=== PATIENT | male | born 1990 | race Caucasian/White ===

== ENCOUNTER 2017-03-13 08:38 | Inpatient (IN) | payer SELFPAY ==
[~2017-03-13] VITALS: Ht 177.8 cm; Wt 60.1 kg
[2017-03-13] MEDS ORDERED: SODIUM CHLORIDE 0.9% 1,000 ML IVB ONE (08:52)
[2017-03-13] MEDS ORDERED: ANGIOMAX 250 MG VIAL IV ONE ×2 (08:56→10:12)
[2017-03-13] MEDS ORDERED: MIDAZOLAM HCL 1MG/1ML-2 ML VIAL ONE ×2 (08:57→10:12)
[2017-03-13] MEDS ORDERED: SODIUM CHL 0.9% 0 ML ONE ×2 (08:57→10:12)
[2017-03-13] MEDS ORDERED: fentaNYL CITRATE 100 MCG/2 ML VL ONE ×2 (08:57→10:12)
[2017-03-13] MEDS ORDERED: MORPHINE SULFATE 10 MG/ML INJ 1ML SDV IV ONE (09:00)
[2017-03-13] MEDS ORDERED: ASPirin 81 mg TAB PO ONE (09:00)
[2017-03-13 09:05] LABS: Basophils # (auto) 0 uL; Basophils % (auto) 0.2 % (0.0-2.0); Eosinophils # (auto) 0.2 uL; Eosinophils % (auto) 1.6 % (0.0-7.0); Hematocrit 43.8 % (41.0-53.0); Hemoglobin 14.7 g/dL (13.5-17.5); Lymphocytes # (auto) 2.3 uL; Lymphocytes % (auto) 18.4 % (10.0-50.0); Mean Corpuscular Hemoglobin 29.1 pg (28.0-32.0); Mean Corpuscular Hgb Conc. 33.6 g/dL (32.0-36.0); Mean Corpuscular Volume 86.6 fL (80.0-100.0); Mean Platelet Volume 6.9 fL (6.9-10.8); Monocytes # (auto) 1.4 uL; Monocytes % (auto) 11.5 % (0.0-12.0); Neutrophils # (auto) 8.5 uL; Neutrophils % (auto) 68.3 % (37.0-80.0); Nucleated Red Blood Cells % 0.1 %; Platelet Count (auto) 402 10^3/uL (140-450); Red Cell Distribution Width 14.4 % (11.8-14.3); White Blood Cell 12.4 10^3/uL (4.4-10.8)
[2017-03-13 09:17] LABS: INR 1.03 (0.9-1.15); Partial Thromboplastin Time 31.8 sec (22.64-33.71); Prothrombin Time 11.2 sec (9.37-12.3)
[2017-03-13 09:35] LABS: Albumin 3.3 g/dL (3.4-5.0); BUN/Creatinine Ratio 10.6; Bilirubin, Total 0.4 mg/dL (0.2-1.0); Calcium 8.5 mg/dL (8.5-10.1); Potassium 3.7 mmol/L (3.5-5.1); Total Protein 7.7 g/dL (6.4-8.2)
[2017-03-13] MEDS ORDERED: LIDOCAINE 2%HCL (LOCAL ANESTH.) INJ 20ML MDV ONE (10:06)
[2017-03-13] MEDS ORDERED: IOHEXOL 350 MG/ML 100ML IJ ONE ×2 (10:06→10:52)
[2017-03-13] MEDS ORDERED: VERAPAMIL 2.5MG/ML INJ 2ML VIAL IV ONE (10:34)
[2017-03-13] MEDS ORDERED: HEPARIN 1,000 UNITS/ml 1ML VIAL ONE ×2 (10:58→10:59)
[2017-03-13 14:00] VITALS: BP 131/71
[2017-03-13] MEDS: IBUPROFEN 600 MG TAB PO SCH ×2 (14:00→21:39)
[2017-03-13 17:29] VITALS: BP 110/87
[2017-03-13 22:00] VITALS: BP 104/66
[2017-03-14 05:00] VITALS: BP 110/81
[2017-03-14] MEDS: IBUPROFEN 600 MG TAB PO SCH ×2 (05:57→12:59)
[2017-03-14 09:00] VITALS: BP 112/79
[2017-03-14] MEDS ORDERED: PANTOPRAZOLE 40 MG TAB PO ONE (10:30)
[2017-03-14 13:24] VITALS: BP 118/82
[2017-03-14 17:00] VITALS: BP 122/79
[2017-03-15] MEDS ORDERED: PANTOPRAZOLE 40 MG TAB PO SCH (10:00)
== END 2017-03-14 17:00 | disposition home or self-care (01) | DRG 281 ==
LOC: ER 08:38 → CATH 08:39 → CENTRAL 08:40 → TELE-CENTR 13:57
PROVIDERS: ADMIT Internal Medicine; ATTEND Internal Medicine
PROC: B2111ZZ Fluoroscopy of Multiple Coronary Arteries using Low Osmolar Contrast (ICD-10-PCS; principal; 2017-03-13)
PROC: 4A023N7 Measurement of Cardiac Sampling and Pressure, Left Heart, Percutaneous Approach (ICD-10-PCS; 2017-03-13)
DX: I21.4 Non-ST elevation (NSTEMI) myocardial infarction (principal); I31.9 Disease of pericardium, unspecified; F17.210 Nicotine dependence, cigarettes, uncomplicated; Z90.49 Acquired absence of other specified parts of digestive tract
CPT/HCPCS: 36415; 71020; 80053; 83735; 84484; 85025; 85379; 85610; 85730; 86850; 86900; 86901; 93005; 93306; 99152; 99153; J2250

== ENCOUNTER 2019-10-13 09:21 | Emergency (ER) | payer MEDICAID, OTHER ==
[~2019-10-13] VITALS: Ht 177.8 cm; Wt 64.9 kg
[2019-10-13 09:40] VITALS: BP 117/78
[2019-10-13 10:05] LABS: Urine Bacteria NONE SEEN /hpf (None Seen); Urine Blood Negative /uL (Negative); Urine Mucus FEW (None Seen); Urine Specific Gravity 1.029 (1.001-1.035); Urine WBC 2 /hpf (0 - 3)
[2019-10-13] MEDS ORDERED: KETOROLAC TROMETH 60MG/2ML VIAL IM ONE (11:45)
== END 2019-10-13 12:56 | disposition home or self-care (01) ==
LOC: ER 09:21
DX: M79.10 Myalgia, unspecified site (principal); M54.5 Low back pain; R51 Headache; I25.2 Old myocardial infarction; Z90.49 Acquired absence of other specified parts of digestive tract
CPT/HCPCS: 74176; 81001; 96372; 99284; J1885

== ENCOUNTER 2021-01-04 19:59 | Inpatient (IN) | payer OTHER ==
[~2021-01-04] VITALS: Ht 175.3 cm; Wt 59.1 kg
[2021-01-04] MEDS ORDERED: MORPHINE SULFATE 4 MG/ML SYR/VIAL IV ONE (20:15)
[2021-01-04] MEDS ORDERED: ONDANSETRON HCL 4 MG/2 ML VIAL IV ONE (20:15)
[2021-01-04 21:10] LABS: Basophils # (auto) 0.1 10 ^3/uL (0-0.2); Basophils % (auto) 0.5 % (0.0-2.0); Eosinophils # (auto) 0.1 10 ^3/uL (0-0.8); Eosinophils % (auto) 0.6 % (0.0-7.0); Hematocrit 40.5 % (41.0-53.0); Hemoglobin 14.1 g/dL (13.5-17.5); Lymphocytes % (auto) 15.5 % (10.0-50.0); Mean Corpuscular Hemoglobin 30.3 pg (28.0-32.0); Mean Corpuscular Hgb Conc. 34.7 g/dL (32.0-36.0); Mean Corpuscular Volume 87.3 fL (80.0-100.0); Monocytes # (auto) 0.9 10 ^3/uL (0-1.3); Monocytes % (auto) 6.8 % (0.0-12.0); Neutrophils # (auto) 10.1 10 ^3/uL (1.6-8.6); Neutrophils % (auto) 76.6 % (37.0-80.0); Red Blood Cells 4.64 10^6/uL (4.5-5.90); Red Cell Distribution Width 13.7 % (11.8-14.3); White Blood Cell 13.1 10^3/uL (4.4-10.8)
[2021-01-04 21:12] LABS: Calcium 8.5 mg/dL (8.5-10.1); Potassium 3.4 mmol/L (3.5-5.1)
[2021-01-04 21:14] LABS: BUN/Creatinine Ratio 16.9
[2021-01-04 21:16] LABS: Bilirubin, Total 0.3 mg/dL (0.2-1.0); Total Protein 7.4 g/dL (6.4-8.2)
[2021-01-04 21:27] LABS: INR 1.03 (0.9-1.15); Partial Thromboplastin Time 25.4 sec (23.6-33.0)
[2021-01-04] MEDS ORDERED: ACETAMINOPHEN 325 MG TAB PO PRN (23:00)
[2021-01-04] MEDS ORDERED: ONDANSETRON HCL 4 MG/2 ML VIAL IV PRN (23:00)
[2021-01-04] MEDS ORDERED: NITROGLYCERIN 0.4 MG SL TAB SL PRN (23:00)
[2021-01-04] MEDS ORDERED: DOCUSATE SOD 100 MG CAP PO PRN (23:00)
[2021-01-04] MEDS ORDERED: MORPHINE SULFATE INJECTION 2 MG/ML SYRG IV PRN (23:00)
[2021-01-05] MEDS ORDERED: LIDOCAINE 2% (LOCAL ANESTH.) PF 5ml SDV ONE (01:14)
[2021-01-05] MEDS ORDERED: LIDOCAINE W/ EPINEPHRINE 2% INJ 20ML VIAL IJ ONE (01:15)
[2021-01-05] MEDS: MORPHINE SULFATE INJECTION 2 MG/ML SYRG IV PRN ×4 (04:10→19:39)
[2021-01-05 04:24] LABS: Basophils # (auto) 0.1 10 ^3/uL (0-0.2); Basophils % (auto) 0.5 % (0.0-2.0); Eosinophils # (auto) 0 10 ^3/uL (0-0.8); Eosinophils % (auto) 0.1 % (0.0-7.0); Hematocrit 38.3 % (41.0-53.0); Hemoglobin 13.4 g/dL (13.5-17.5); Lymphocytes # (auto) 1.3 10 ^3/uL (0.4-5.4); Lymphocytes % (auto) 8.5 % (10.0-50.0); Mean Corpuscular Hemoglobin 30.7 pg (28.0-32.0); Mean Corpuscular Hgb Conc. 35.1 g/dL (32.0-36.0); Mean Corpuscular Volume 87.6 fL (80.0-100.0); Monocytes # (auto) 0.7 10 ^3/uL (0-1.3); Monocytes % (auto) 4.6 % (0.0-12.0); Neutrophils # (auto) 13.3 10 ^3/uL (1.6-8.6); Neutrophils % (auto) 86.3 % (37.0-80.0); Red Blood Cells 4.37 10^6/uL (4.5-5.90); Red Cell Distribution Width 13.5 % (11.8-14.3); White Blood Cell 15.4 10^3/uL (4.4-10.8)
[2021-01-05 04:36] LABS: Albumin 3.5 g/dL (3.4-5.0); Calcium 7.8 mg/dL (8.5-10.1); Potassium 3.6 mmol/L (3.5-5.1)
[2021-01-05 04:41] LABS: BUN/Creatinine Ratio 14.1; Total Protein 6.7 g/dL (6.4-8.2)
[2021-01-05] MEDS: SODIUM CHLOR 0.9% PF (SALINE LOCK) 10ML VIAL/SYR IV SCH ×3 (06:47→19:40)
[2021-01-05] MEDS: ENOXAPARIN SOD 40 MG/0.4 ML SYRINGE SC SCH (08:07)
[2021-01-05] MEDS: FAMOTIDINE 20 MG TAB PO SCH (08:07)
[2021-01-05] MEDS: cefTRIAXone 1GM/50ML D5W 50 ML IV SCH (08:07)
[2021-01-05] MEDS: MULTIPLE VITAMIN TAB PO SCH (08:07)
[2021-01-05] MEDS: ASCORBIC ACID 500 MG TAB PO SCH ×2 (08:07→19:39)
[2021-01-05] MEDS: ZINC SULFATE 220mg CAP or TAB PO SCH (08:07)
[2021-01-05] MEDS: NICOTINE 14 MG/24HR TOPICAL PATCH TD SCH (08:08)
[2021-01-05 17:00] VITALS: BP 117/79
[2021-01-05 17:10] VITALS: BP 119/79
[2021-01-05 20:24] LABS: Amphetamine Screen, Urine NEGATIVE (NEGATIVE); Barbiturate Scree,Urine NEGATIVE (NEGATIVE); Benzodiazephine Screen, Urine NEGATIVE (NEGATIVE); Cannabinoid Screen, Urine POSITIVE (NEGATIVE); Cocaine Screen, Urine NEGATIVE (NEGATIVE); Opiate Scree,Urine POSITIVE (NEGATIVE); Phencyclidine Screen, Urine NEGATIVE (NEGATIVE)
[2021-01-05 22:00] VITALS: BP 126/83
[2021-01-06] MEDS: MORPHINE SULFATE INJECTION 2 MG/ML SYRG IV PRN (00:17)
[2021-01-06 05:00] VITALS: BP 118/72
[2021-01-06] MEDS: SODIUM CHLOR 0.9% PF (SALINE LOCK) 10ML VIAL/SYR IV SCH ×5 (05:45→21:35)
[2021-01-06 06:21] LABS: Basophils # (auto) 0 10 ^3/uL (0-0.2); Basophils % (auto) 0.2 % (0.0-2.0); Eosinophils # (auto) 0.1 10 ^3/uL (0-0.8); Eosinophils % (auto) 0.4 % (0.0-7.0); Hematocrit 40.8 % (41.0-53.0); Hemoglobin 14.3 g/dL (13.5-17.5); Lymphocytes # (auto) 1.4 10 ^3/uL (0.4-5.4); Mean Corpuscular Hemoglobin 30.9 pg (28.0-32.0); Mean Corpuscular Volume 88.4 fL (80.0-100.0); Monocytes # (auto) 0.8 10 ^3/uL (0-1.3); Monocytes % (auto) 5.3 % (0.0-12.0); Neutrophils % (auto) 84.1 % (37.0-80.0); Red Blood Cells 4.62 10^6/uL (4.5-5.90); Red Cell Distribution Width 13.5 % (11.8-14.3); White Blood Cell 14.3 10^3/uL (4.4-10.8)
[2021-01-06 06:36] LABS: BUN/Creatinine Ratio 9.4; Calcium 8.6 mg/dL (8.5-10.1); Magnesium 2.3 mg/dL (1.6-2.6); Potassium 3.9 mmol/L (3.5-5.1)
[2021-01-06 08:30] VITALS: BP 120/72
[2021-01-06 08:48] VITALS: BP 129/72
[2021-01-06] MEDS: cefTRIAXone 1GM/50ML D5W 50 ML IV SCH (08:57)
[2021-01-06] MEDS ORDERED: BUPIVACAINE 0.25% INJ 50ML VIAL ONE (09:52)
[2021-01-06] MEDS ORDERED: ceFAZolin 1GM/50ML 100 ML IV ONE (10:21)
[2021-01-06] MEDS ORDERED: fentaNYL CITRATE 100 MCG/2 ML VL ONE (10:38)
[2021-01-06] MEDS ORDERED: MIDAZOLAM HCL 2MG/2ML 2ml VIAL (1mg/ml) ONE (10:38)
[2021-01-06] MEDS ORDERED: MEPERIDINE HCL (50 MG/ML) 1 ML VIAL ONE ×2 (10:38→11:12)
[2021-01-06] MEDS ORDERED: PROPOFOL 10 MG/ML 20 ML IV ONE (10:58)
[2021-01-06] MEDS ORDERED: DexAMETHasone SOD PHOS 10MG/1ML VIAL INJ ONE (10:58)
[2021-01-06] MEDS ORDERED: HYDROmorphone HCL 2 MG/ML VL IV PRN ×2 (11:15→12:30)
[2021-01-06] MEDS ORDERED: KETOROLAC TROMETH 30 MG/ML 1ML VIAL IV ONE (11:15)
[2021-01-06] MEDS ORDERED: MIDAZOLAM HCL 2MG/2ML 2ml VIAL (1mg/ml) IV PRN (11:15)
[2021-01-06] MEDS ORDERED: ePHEDrine SULFATE 50 MG/ML AMP IV PRN (11:15)
[2021-01-06] MEDS ORDERED: LABETALOL HCL 5 MG/ML 4ML SYRINGE IV PRN (11:15)
[2021-01-06] MEDS ORDERED: ONDANSETRON HCL 4 MG/2 ML VIAL IV PRN (11:15)
[2021-01-06] MEDS ORDERED: MORPHINE SULFATE 4 MG/ML SYR/VIAL IV PRN (11:15)
[2021-01-06] MEDS ORDERED: ONDANSETRON HCL 4 MG/2 ML VIAL ONE (11:16)
[2021-01-06] MEDS ORDERED: ceFAZolin 1GM/50ML 50 ML IV SCH (12:30)
[2021-01-06] MEDS ORDERED: OXYCODONE W/ ACETAMINOPHEN 5/325MG TABLET PO PRN (12:30)
[2021-01-06] MEDS: FAMOTIDINE 20 MG TAB PO SCH (16:10)
[2021-01-06] MEDS: ZINC SULFATE 220mg CAP or TAB PO SCH (16:11)
[2021-01-06] MEDS: ENOXAPARIN SOD 40 MG/0.4 ML SYRINGE SC SCH (16:11)
[2021-01-06] MEDS: MULTIPLE VITAMIN TAB PO SCH (16:11)
[2021-01-06] MEDS: ASCORBIC ACID 500 MG TAB PO SCH ×2 (16:11→21:36)
[2021-01-06] MEDS: NICOTINE 14 MG/24HR TOPICAL PATCH TD SCH (16:12)
[2021-01-06 16:47] VITALS: BP 140/87
[2021-01-06] MEDS: LACTATED RINGER'S 1,000 ML IV SCH ×2 (18:06→22:30)
[2021-01-06] MEDS: HYDROcodone-ACET 5/325MG TAB PO PRN (19:48)
[2021-01-06] MEDS: ceFAZolin 1GM/50ML 50 ML IV SCH (21:35)
[2021-01-06 22:00] VITALS: BP 125/68
[2021-01-07] MEDS: ceFAZolin 1GM/50ML 50 ML IV SCH (03:13)
[2021-01-07] MEDS: HYDROcodone-ACET 5/325MG TAB PO PRN ×3 (03:14→14:34)
[2021-01-07 05:00] VITALS: BP 117/78
[2021-01-07] MEDS: SODIUM CHLOR 0.9% PF (SALINE LOCK) 10ML VIAL/SYR IV SCH ×4 (05:15→14:19)
[2021-01-07] MEDS: MORPHINE SULFATE INJECTION 2 MG/ML SYRG IV PRN (06:31)
[2021-01-07 06:36] LABS: Basophils # (auto) 0 10 ^3/uL (0-0.2); Basophils % (auto) 0.3 % (0.0-2.0); Eosinophils # (auto) 0 10 ^3/uL (0-0.8); Eosinophils % (auto) 0.2 % (0.0-7.0); Hematocrit 34.2 % (41.0-53.0); Hemoglobin 11.9 g/dL (13.5-17.5); Lymphocytes # (auto) 1.5 10 ^3/uL (0.4-5.4); Lymphocytes % (auto) 11.1 % (10.0-50.0); Mean Corpuscular Hemoglobin 30.3 pg (28.0-32.0); Mean Corpuscular Hgb Conc. 34.7 g/dL (32.0-36.0); Mean Corpuscular Volume 87.2 fL (80.0-100.0); Monocytes % (auto) 7.6 % (0.0-12.0); Neutrophils # (auto) 11.2 10 ^3/uL (1.6-8.6); Neutrophils % (auto) 80.8 % (37.0-80.0); Red Blood Cells 3.92 10^6/uL (4.5-5.90); Red Cell Distribution Width 13.2 % (11.8-14.3); White Blood Cell 13.8 10^3/uL (4.4-10.8)
[2021-01-07 06:47] LABS: Potassium 3.6 mmol/L (3.5-5.1)
[2021-01-07 06:53] LABS: Calcium 8.2 mg/dL (8.5-10.1)
[2021-01-07] MEDS: LACTATED RINGER'S 1,000 ML IV SCH (06:55)
[2021-01-07 08:15] VITALS: BP 126/87
[2021-01-07 09:00] VITALS: BP 126/87
[2021-01-07] MEDS: cefTRIAXone 1GM/50ML D5W 50 ML IV SCH (09:00)
[2021-01-07] MEDS ORDERED: CEPH-322 PO (09:02)
[2021-01-07] MEDS ORDERED: NIC21P TOP (10:22)
[2021-01-07] MEDS: ZINC SULFATE 220mg CAP or TAB PO SCH (10:26)
[2021-01-07] MEDS: MULTIPLE VITAMIN TAB PO SCH (10:26)
[2021-01-07] MEDS: FAMOTIDINE 20 MG TAB PO SCH (10:26)
[2021-01-07] MEDS: ENOXAPARIN SOD 40 MG/0.4 ML SYRINGE SC SCH (10:26)
[2021-01-07] MEDS: ASCORBIC ACID 500 MG TAB PO SCH (10:26)
[2021-01-07] MEDS: NICOTINE 14 MG/24HR TOPICAL PATCH TD SCH (10:31)
[2021-01-07 13:00] VITALS: BP 131/80
[2021-01-07 14:08] VITALS: BP 131/80
== END 2021-01-07 15:30 | disposition home or self-care (01) | DRG 313 ==
LOC: EDBD 19:59 → ER 20:02 → OVERFLOW 22:59 → CENTRAL 01-05 15:15
PROVIDERS: ADMIT Nurse Practitioner Family; ATTEND Internal Medicine
PROC: 0QSJ3ZZ Reposition Right Fibula, Percutaneous Approach (ICD-10-PCS; 2021-01-06)
PROC: 0QBG0ZZ Excision of Right Tibia, Open Approach (ICD-10-PCS; 2021-01-06)
PROC: 0KBS0ZZ Excision of Right Lower Leg Muscle, Open Approach (ICD-10-PCS; 2021-01-06)
PROC: 0QSG04Z Reposition Right Tibia with Internal Fixation Device, Open Approach (ICD-10-PCS; principal; 2021-01-06 10:40)
DX: S82.251A Displaced comminuted fracture of shaft of right tibia, initial encounter for closed fracture (principal); R65.10 Systemic inflammatory response syndrome (SIRS) of non-infectious origin without acute organ dysfunction; S82.451A Displaced comminuted fracture of shaft of right fibula, initial encounter for closed fracture; F12.90 Cannabis use, unspecified, uncomplicated; F17.210 Nicotine dependence, cigarettes, uncomplicated; Z20.822 Contact with and (suspected) exposure to COVID-19; I25.2 Old myocardial infarction; Z80.9 Family history of malignant neoplasm, unspecified; V29.88XA Motorcycle rider (driver) (passenger) injured in other specified transport accidents, initial encounter; Y93.89 Activity, other specified; Y92.89 Other specified places as the place of occurrence of the external cause; Y99.8 Other external cause status; Z79.899 Other long term (current) drug therapy; Z68.1 Body mass index [BMI] 19.9 or less, adult
CPT/HCPCS: 29505; 36415; 71045; 73590; 76001; 80048; 80053; 80307; 83735; 85025; 85610; 85730; 86850; 86900; 86901; 87040; 87426; 93005; 96365; 96372; 96375; 96376; 97163; G0378; J0690; J0696; J1100; J1885; J2001; J2250; J2405; J2704; J3490